=== PATIENT | female | born 1960 | race Caucasian/White ===

== ENCOUNTER 2017-12-13 11:14 | Emergency (ER) | payer BC, OTHER ==
[~2017-12-13] VITALS: Ht 152.4 cm; Wt 45.4 kg
[2017-12-13 11:14] VITALS: BP_SYST 140
[~2017-12-13 11:14] MED LIST: ATEN-41 PO; CAT.1 PO; CIPR-211 PO; CITA40TA22 PO; GABA-531 PO; HYDR-1189 PO; LORA2TAB95 PO; PHE25 PO; TRAZ-126 PO; VIS50 PO
--- NOTE | 2017-12-13 11:15 | NUR ---
Patient to ER bed 05 to gown for evaluation. Side rails up.
--- NOTE | 2017-12-13 11:17 | NUR ---
Pt AAOx4 ambulated into ED for medical clearance to continue rehab program at [facility]. Pt states she had a glass of vodka this morning. Skin pink dry, breathing even and unlabored. Family at bedside. Will continue to monitor.
--- NOTE | 2017-12-13 11:20 | NUR ---
ER Dr. Donald at bedside examining patient.
[2017-12-13] MEDS ORDERED: LORazepam 1 MG TABLET PO ONE (11:30)
--- NOTE | 2017-12-13 11:44 | NUR ---
Lab at bedside
--- NOTE | 2017-12-13 11:46 | NUR ---
Ativan administered. Pt tolerated well. No adverse reactions noted.
[2017-12-13 11:54] LABS: HEMATOCRIT 36.1 % (36-48); HEMOGLOBIN 11.9 g/dL (12.0-16.0); MEAN CORPUSCULAR HEMOGLOBIN 32 pg (27-31); MEAN CORPUSCULAR HGB CONC 33 % (32-36); MEAN CORPUSCULAR VOLUME 98 fL (79.0-98.0); PLATELET COUNT (AUTO) 336 K/uL (130-430); RED CELL DISTRIBUTION WIDTH 18.4 % (9.0-15.0); WHITE BLOOD COUNT (AUTO) 4.2 K/uL (4.8-10.8)
[2017-12-13 12:10] LABS: ANION GAP 12 (5-15); CALCIUM 9.5 mg/dL (8.4-11.0); CHLORIDE 109 mmol/L (98-107); CREATININE 0.73 mg/dL (0.55-1.30); GLUCOSE 116 mg/dL (70-99); SODIUM SERUM 148 mmol/L (136-145); UREA NITROGEN, BLOOD 15 mg/dL (8-21)
[2017-12-13 12:11] LABS: GFR AFRICAN AMERICAN 105 mL/min (>90)
[2017-12-13 12:17] LABS: ACETAMINOPHEN < 1 ug/mL (1-30); ALANINE AMINOTRANSFERASE 27 U/L (12-78); ALBUMIN 3.9 g/dL (3.4-4.8); ASPARTATE AMINOTRANSFERASE 21 U/L (10-37); TOTAL BILIRUBIN 0.2 mg/dL (0.0-1.0)
[2017-12-13 12:31] LABS: ALCOHOL, BLOOD 338 mg/dL (<10)
[2017-12-13 12:54] LABS: BARBITURATE, URINE NEGATIVE (NEG <=200); METHAMPHETAMINES SCREEN,URINE NEGATIVE (NEG <=500); URINE AMPHETAMINE NEGATIVE (NEG <=500); URINE METHADONE NEGATIVE (NEG <=200)
[2017-12-13 12:55] LABS: BENZODIAZEPINE, URINE POSITIVE (NEG <=150); CANNABINOID, URINE NEGATIVE (NEG <=50); COCAINE, URINE NEGATIVE (NEG <=150); OPIATE, URINE NEGATIVE (NEG <=100); PHENCYCLIDINE SCREEN,URINE NEGATIVE (NEG <=25); UR TRICYCLIC ANTIDEPRESSANTS NEGATIVE (NEG <=300); URINE OXYCODONE SCREEN NEGATIVE (NEG <=100); URINE PROPOXYPHENE SCREEN NEGATIVE (NEG <=300)
[2017-12-13] MEDS ORDERED: NACL 0.9% 1,000 ML IV ONE ×3 (13:30→15:30)
[2017-12-13 13:32] LABS: BAND % (MANUAL) 2 % (0-6); BASOPHILS % (MANUAL) 0 % (0-2); EOSINOPHILS % (MANUAL) 0 % (0-7); LYMPHOCYTES % (MANUAL) 28 % (20-46); MONOCYTES % (MANUAL) 3 % (0-11)
--- NOTE | 2017-12-13 13:48 | NUR ---
Dietary Lunch tray brought over for pt from dietary. Will continue to monitor.
--- NOTE | 2017-12-13 16:51 | NUR ---
Pt resting, no acute distress. VSS. IVF infusing to left FA with no s/sx of infiltration. Pt drinking juice tolerating well. Moved to hallway.
--- NOTE | 2017-12-13 18:17 | NUR ---
Pt provided with dinner tray. Sitting up eating independently
[2017-12-13 19:05] VITALS: BP_SYST 134
--- NOTE | 2017-12-13 19:05 | NUR ---
Patient given written and verbal discharge instructions and verbalizes understanding. ER MD discussed with patient the results and treatment provided. Patient in stable condition. ID arm band removed. IV catheter removed intact and dressing applied, no active bleeding. Rx of ativan given. Patient educated on pain management and to follow up with PMD. Pain Scale 0/10. Opportunity for questions provided and
== END 2017-12-13 19:05 | disposition home or self-care (01) ==
LOC: SED 11:14
DX: F10.10 Alcohol abuse, uncomplicated (principal); I12.9 Hypertensive chronic kidney disease with stage 1 through stage 4 chronic kidney disease, or unspecified chronic kidney disease; N18.9 Chronic kidney disease, unspecified; F32.9 Major depressive disorder, single episode, unspecified; Z88.1 Allergy status to other antibiotic agents; Z79.899 Other long term (current) drug therapy
CPT/HCPCS: 36415; 80053; 80307; 83690; 84703; 85007; 85027; 99285; G0480; G0481; G0482; J7030